=== PATIENT | male | born 1950 | race Caucasian/White ===

== ENCOUNTER 2019-09-07 20:24 | Inpatient (IN) ==
--- NOTE | 2019-09-07 20:39 | Emergency Department Note ---
SOB HPI - General Chief Complaint: Shortness of Breath/Dyspnea Stated Complaint: shortness of breathe Time Seen by Provider: 09/07/19 20:39 Mode of arrival: EMS - History of Present Illness 69-year-old male presents with shortness of breath. States he has COPD and is chronically short of breath but it is worse than usual especially the last couple of days but cannot really tell me how long this is been going on for. He did do treatment to nebulizer treatments at home and had one in route. States he feels still feels very short of breath. He is agitated and states we are not going to get labs on him or do anything until we give him some IV prednisone. No fever or chills. No nausea, vomiting, or diarrhea. Does have a chronic cough and no change in that cough. - Related Data Home Medications Medication Instructions Recorded Confirmed Tiotropium [place] [Spiriva] 18 mcg INH DAILY 10/24/15 05/26/19 albuterol sulfate 90 mcg/actuation 2 puff INHALATION QID PRN g 08/15/17 05/26/19 aerosol inhaler atorvastatin 20 mg tablet 20 mg PO QDAY 08/15/17 05/26/19 blood sugar diagnostic See Dose Instructions .ROUTE 08/15/17 05/26/19 .MEDSUPPLY #20 each budesonide-formoterol HFA 160 2 puff INHALATION BID g 08/15/17 05/26/19 mcg-4.5 mcg/actuation aerosol inhaler cetirizine 10 mg tablet 10 mg PO QDAY tab 08/15/17 05/26/19 guaifenesin 600 mg tablet, 600 mg PO BID tab 08/15/17 05/26/19 extended release 12 hr lancets See Dose Instructions .ROUTE 08/15/17 05/26/19 .MEDSUPPLY #50 each tiotropium bromide 2.5 2 puff INHALATION QDAY 08/15/17 05/26/19 mcg/actuation mist for inhalation furosemide 20 mg tablet 20 mg PO QDAY 09/06/17 05/26/19 ipratropium-albuterol 0.5 mg-3 3 ml INHALATION QID PRN ml 09/06/17 05/26/19 mg(2.5 mg base)/3 mL nebulization soln metformin 500 mg tablet 500 mg PO BID 10/16/17 05/26/19 montelukast 10 mg tablet 10 mg PO QHS 10/16/17 05/26/19 prednisone 10 mg tablet 10 mg PO QDAY tab 10/14/18 05/26/19 varenicline 1 mg tablet 1 mg PO QDAY tab 05/26/19 05/26/19 Previous Rx's Medication Instructions Recorded Daliresp 500 mcg tablet 500 mcg PO QDAY #30 tab NS 05/02/18 Allergies Allergy/AdvReac Type Severity Reaction Status Date / Time levofloxacin [From Levaquin] Allergy Unknown Unknown Verified 09/08/19 06:46 Review of Systems All systems ED: reviewed and negative except as stated. Past Medical History - Past Medical History [facility] Narrative: Medical History (Last Reviewed 05/26/19 @ 15:32 by Junior Saul MD) Hypertension (Chronic) Prolonged posttraumatic stress disorder (Chronic) PTSD (post-traumatic stress disorder) (Chronic) Marijuana abuse, continuous (Chronic) Alcohol abuse, continuous (Chronic) Hearing loss (Chronic) GERD (gastroesophageal reflux disease) (Chronic) Chronic rhinitis (Chronic) Overweight (Chronic) Hyperlipidemia (Chronic) Postherpetic neuralgia (Chronic) Acute bronchitis (Chronic) Gastritis (Chronic) Bronchitis (Chronic) Sinus tachycardia (Chronic) Nicotine dependence (Chronic) Basal cell carcinoma of cheek (Chronic) Diabetes mellitus (Chronic) Bacterial pneumonia (Chronic) Tachycardia (Chronic) COPD (chronic obstructive pulmonary disease) (Chronic) COPD exacerbation (Chronic) Past Surgical History (Last Reviewed 05/26/19 @ 15:32 by Junior Saul MD) History of colonoscopy (Chronic) Medical history: Reports: COPD, DM, hypertension Psychiatric history: Reports: PTSD Surgical history ED: Reports: other - Social History smoking status: Current some day smoker Alcohol use: Reports: Occasionally Drug use: Reports: none Physical Exam General appearance: alert, anxious, other (Speaking in 1-2 words at a time on arrival with mild respiratory distress) Head: atraumatic, normocephalic, normal inspection Eye: Present: normal appearance. Absent: conjunctival injection ENT: Present: mucous membranes moist Chest: Present: symmetric chest wall rise Respiratory: Present: wheezes (Inspiratory and expiratory wheezing throughout on arrival with diminished breath sounds. After Solu-Medrol and DuoNeb treatment he does have increased air movement but is still has expiratory wheezes in the bases) Cardiovascular: Present: tachycardia Extremities: Present: normal inspection. Absent: pedal edema Neurological: Present: alert, oriented X3 Psychiatric: Present: normal affect, normal mood Skin: Present: warm, dry, intact, normal color. Absent: rash, hives, cyanosis, diaphoresis Course Course Narrative: At [address] Roque to assume care due to shift change Vital Signs Temperature 97.3 F 09/07/19 20:25 Pulse Rate 112 H 09/07/19 20:25 Respiratory Rate 24 H 09/07/19 20:25 Blood Pressure 129/69 09/07/19 20:25 Pulse Oximetry (%) 98 09/07/19 20:25 Temperature 97.8 F 09/08/19 04:36 Pulse Rate 94 H 09/08/19 07:41 Respiratory Rate 16 09/08/19 07:41 Blood Pressure 129/65 09/08/19 04:36 Pulse Oximetry (%) 96 09/08/19 07:28 Shortness of Breath/Dyspnea - Lab Data Result diagrams: 09/08/19 05:03 09/08/19 05:03 Lab Results 09/07/19 09/07/19 09/07/19 Range/Units 20:48 20:48 20:48 WBC 12.6 H (4.50-11.00) K/mcL RBC 4.71 (4.63-6.08) M/mcL Hgb 14.5 (13.7-17.5) g/dL Hct 44.2 (40.1-51.0) % MCV 93.8 (80.0-100.0) fL MCH 30.8 (26.0-34.0) pg MCHC 32.8 (31.0-36.0) g/dL RDW 13.2 (11.5-14.5) % Plt Count 249 (140-440) K/mcL MPV 10.2 (7.4-10.4) fL Gran % 60.7 (38.0-78.0) % Lymph % (Auto) 22.3 (15.5-49.0) % [place] % (Auto) 9.8 (1.0-12.0) % Eos % (Auto) 6.4 (0.0-7.0) % Baso % (Auto) 0.8 (0.0-2.0) % Gran # 7.63 (1.80-8.00) K/mcL Lymph # (Auto) 2.81 (1.50-4.80) K/mcL [place] # (Auto) 1.23 H (0.10-0.90) K/mcL Eos # (Auto) 0.81 H (0.00-0.70) K/mcL Baso # (Auto) 0.10 (0.00-0.30) K/mcL Sodium 136 (133-145) mmol/L Potassium 3.7 (3.3-5.1) mmol/L Chloride 96 (96-108) mmol/L Carbon Dioxide 25 (22-30) mmol/L Anion Gap 15.0 (8-16) BUN 8 (8-23) mg/dl Creatinine 0.9 (0.7-1.2) mg/dl GFR Calculation 86 Glucose 147 H (70-105) mg/dL Calcium 9.4 (8.6-10.4) mg/dl Total Bilirubin 0.3 (0.0-1.0) mg/dL AST 24 (0-37) U/l ALT 27 (0-40) U/l Alkaline Phosphatase 74 (39-117) U/L Total Protein 6.7 (5.9-8.4) gm/dL Albumin 4.0 (3.2-5.2) gm/dL Globulin 2.7 (2.2-3.7) gm/dL Albumin/Globulin Ratio 1.5 (1.0-2.3) Procalcitonin < 0.05 (<0.10) ng/mL Disposition Pt seen by DISTRIBUTION SYSTEM OPERATOR/PA only: No Clinical Impression: COPD with acute exacerbation, Failure of outpatient treatment Disposition: Xfer As Inpt ([facility]) Condition: Fair
[2019-09-07] MEDS ORDERED: IPRATROPIUM/ALBUTEROL 3 ML AMPUL.NEB NEB ONE ×2 (20:40→21:06)
[2019-09-07] MEDS ORDERED: methylPREDNISolone SOD SUCC 125 MG/2 ML VIAL IV ONE (20:40)
[2019-09-07 21:23] LABS: Basophils % (Auto) 0.8 % (0.0-2.0); Eosinophils # (Auto) 0.81 K/mcL (0.00-0.70); Eosinophils % (Auto) 6.4 % (0.0-7.0); Granulocytes % (Auto) 60.7 % (38.0-78.0); Hematocrit 44.2 % (40.1-51.0); Hemoglobin 14.5 g/dL (13.7-17.5); Lymphocytes # (Auto) 2.81 K/mcL (1.50-4.80); Lymphocytes % (Auto) 22.3 % (15.5-49.0); Mean Cell Volume 93.8 fL (80.0-100.0); Mean Corpuscular HGB Conc 32.8 g/dL (31.0-36.0); Mean Platelet Volume 10.2 fL (7.4-10.4); Monocytes # (Auto) 1.23 K/mcL (0.10-0.90); Monocytes % (Auto) 9.8 % (1.0-12.0); Platelet Count 249 K/mcL (140-440); RBC 4.71 M/mcL (4.63-6.08); Red Cell Distribution Width 13.2 % (11.5-14.5); WBC 12.6 K/mcL (4.50-11.00)
[2019-09-07 21:44] LABS: ALT/SGPT 27 U/l (0-40); AST/SGOT 24 U/l (0-37); Albumin/Globulin Ratio 1.5 (1.0-2.3); Alkaline Phosphatase 74 U/L (39-117); Bilirubin,Total 0.3 mg/dL (0.0-1.0); Blood Urea Nitrogen 8 mg/dl (8-23); Calcium 9.4 mg/dl (8.6-10.4); Carbon Dioxide 25 mmol/L (22-30); Chloride 96 mmol/L (96-108); Globulin 2.7 gm/dL (2.2-3.7); Glomerular Filtration Rate 86; Glucose 147 mg/dL (70-105)
--- NOTE | 2019-09-07 23:35 | Emergency Department Note ---
SOB HPI - General Chief Complaint: Shortness of Breath/Dyspnea Stated Complaint: shortness of breathe Time Seen by Provider: 09/07/19 20:39 Mode of arrival: EMS - History of Present Illness See history and physical dictated by a Virginia Anthony PA-C, which I have reviewed and agreed. Patient still being short of breath at 11:00 at night. He reports that even some of the day yesterday he was able to go without his oxygen without becoming short of breath. Now, today this evening he became short of breath with even minimal walking. He has in the recent past been trying to ride his bike and do weight exercises which usually help him become stronger but they have not been able to be done due to his shortness of breath. He denies fever, chills, sweats, sore throat, runny nose new cough, new wheezing. No new major phlegm or change but he just now had some very thick phlegm which was unusual for him. He is more short of breath than usual such that he thinks he has pneumonia. He has received Solu-Medrol but it has not "turn things around". He has had a total of 4 nebulizers 1 at home, 1 by EMS, and 2 here. - Related Data Home Medications Medication Instructions Recorded Confirmed Tiotropium [place] [Spiriva] 18 mcg INH DAILY 10/24/15 05/26/19 albuterol sulfate 90 mcg/actuation 2 puff INHALATION QID PRN g 08/15/17 05/26/19 aerosol inhaler atorvastatin 20 mg tablet 20 mg PO QDAY 08/15/17 05/26/19 blood sugar diagnostic See Dose Instructions .ROUTE 08/15/17 05/26/19 .MEDSUPPLY #20 each budesonide-formoterol HFA 160 2 puff INHALATION BID g 08/15/17 05/26/19 mcg-4.5 mcg/actuation aerosol inhaler cetirizine 10 mg tablet 10 mg PO QDAY tab 08/15/17 05/26/19 guaifenesin 600 mg tablet, 600 mg PO BID tab 08/15/17 05/26/19 extended release 12 hr lancets See Dose Instructions .ROUTE 08/15/17 05/26/19 .MEDSUPPLY #50 each tiotropium bromide 2.5 2 puff INHALATION QDAY 08/15/17 05/26/19 mcg/actuation mist for inhalation furosemide 20 mg tablet 20 mg PO QDAY 09/06/17 05/26/19 ipratropium-albuterol 0.5 mg-3 3 ml INHALATION QID PRN ml 09/06/17 05/26/19 mg(2.5 mg base)/3 mL nebulization soln metformin 500 mg tablet 500 mg PO BID 10/16/17 05/26/19 montelukast 10 mg tablet 10 mg PO QHS 10/16/17 05/26/19 prednisone 10 mg tablet 10 mg PO QDAY tab 10/14/18 05/26/19 varenicline 1 mg tablet 1 mg PO QDAY tab 05/26/19 05/26/19 Previous Rx's Medication Instructions Recorded Daliresp 500 mcg tablet 500 mcg PO QDAY #30 tab NS 05/02/18 Allergies Allergy/AdvReac Type Severity Reaction Status Date / Time dog dander Allergy Intermediate "respiratory Verified 02/18/19 15:29 issues" levofloxacin [From Levaquin] AdvReac Unknown Unknown Verified 09/07/19 23:55 indoor allergies AdvReac Intermediate Other Uncoded 05/26/19 14:45 Past Medical History - Past Medical History Medical history: Reports: COPD, DM, hypertension Psychiatric history: Reports: PTSD Surgical history ED: Reports: other - Social History smoking status: Current some day smoker Alcohol use: Reports: Occasionally Drug use: Reports: none Physical Exam Is pleasant and interactive and appropriate. He seems to be well oriented capable. Lungs are very distant throughout all dotson. He demonstrate 6 or 7 word dyspnea, pursed lip breathing with prolonged expiratory phase on virtually every breath. He is on 2 L/min of oxygen via nasal cannula. He is doing some tripoding or leaning forward to be able to breathe. C-V: regular without murmur. General appearance: alert, anxious, other (Speaking in 1-2 words at a time on arrival with mild respiratory distress) Course Vital Signs Temperature 97.3 F 09/07/19 20:25 Pulse Rate 112 H 09/07/19 20:25 Respiratory Rate 24 H 09/07/19 20:25 Blood Pressure 129/69 09/07/19 20:25 Pulse Oximetry (%) 98 09/07/19 20:25 Temperature 97.3 F 09/07/19 20:25 Pulse Rate 97 H 09/07/19 23:46 Respiratory Rate 28 H 09/07/19 21:11 Blood Pressure 126/98 09/07/19 23:46 Pulse Oximetry (%) 97 09/07/19 23:46 Shortness of Breath/Dyspnea - [facility] Narrative Medical decision making narrative: Labs include a mildly elevated white count of 12,000. Procalcitonin is < 0.05. 11:34 PM - I discussed patient circumstances with house admin with agreement to go ahead and do ABG now. Patient agreeable. 11:50 PM - spoke with Dr. Nowak, hospitalist, who is willing to accept this pa tient due to failure of outpatient treatment and persistent respiratory effort and a COPD exacerbation/emphysema/hypoxia situation. Levaquin ordered. Heart neb also ordered. 11:51 PM - patient allergic to Levaquin. I will have Dr. Nowak apprised and see if he prefers to go ahead with other antibiotic. - Lab Data Lab results reviewed: Yes I reviewed the patient's lab results. Result diagrams: 09/07/19 20:48 09/07/19 20:48 Lab Results 09/07/19 09/07/19 09/07/19 Range/Units 20:48 20:48 20:48 WBC 12.6 H (4.50-11.00) K/mcL RBC 4.71 (4.63-6.08) M/mcL Hgb 14.5 (13.7-17.5) g/dL Hct 44.2 (40.1-51.0) % MCV 93.8 (80.0-100.0) fL MCH 30.8 (26.0-34.0) pg MCHC 32.8 (31.0-36.0) g/dL RDW 13.2 (11.5-14.5) % Plt Count 249 (140-440) K/mcL MPV 10.2 (7.4-10.4) fL Gran % 60.7 (38.0-78.0) % Lymph % (Auto) 22.3 (15.5-49.0) % [place] % (Auto) 9.8 (1.0-12.0) % Eos % (Auto) 6.4 (0.0-7.0) % Baso % (Auto) 0.8 (0.0-2.0) % Gran # 7.63 (1.80-8.00) K/mcL Lymph # (Auto) 2.81 (1.50-4.80) K/mcL [place] # (Auto) 1.23 H (0.10-0.90) K/mcL Eos # (Auto) 0.81 H (0.00-0.70) K/mcL Baso # (Auto) 0.10 (0.00-0.30) K/mcL Sodium 136 (133-145) mmol/L Potassium 3.7 (3.3-5.1) mmol/L Chloride 96 (96-108) mmol/L Carbon Dioxide 25 (22-30) mmol/L Anion Gap 15.0 (8-16) BUN 8 (8-23) mg/dl Creatinine 0.9 (0.7-1.2) mg/dl GFR Calculation 86 Glucose 147 H (70-105) mg/dL Calcium 9.4 (8.6-10.4) mg/dl Total Bilirubin 0.3 (0.0-1.0) mg/dL AST 24 (0-37) U/l ALT 27 (0-40) U/l Alkaline Phosphatase 74 (39-117) U/L Total Protein 6.7 (5.9-8.4) gm/dL Albumin 4.0 (3.2-5.2) gm/dL Globulin 2.7 (2.2-3.7) gm/dL Albumin/Globulin Ratio 1.5 (1.0-2.3) Procalcitonin < 0.05 (<0.10) ng/mL Disposition Pt seen by MECHANICAL TEST ENGINEER/PA only: No Clinical Impression: COPD with acute exacerbation, Failure of outpatient treatment Disposition: Xfer As Inpt ([facility]) Condition: Fair Referrals: Zulay Jnoes ARNP [Primary Care Provider] -
[2019-09-07] MEDS ORDERED: ALBUTEROL SULFATE 5 MG/ML NEB SOLUTION BOTTLE NEB ONE (23:53)
--- NOTE | 2019-09-07 23:54 | Internal Med History&Physical ---
Medical - H&P: [facility] Patient information: Note initiated : 09/07/19 at 11:51 pm Service Date, if different from initiated Date: [] Patient: Chico Milner a 69 y/o M admitted on for Shortness of breath. Chief Complaint: [] Chief complaint: Shortness of breath History of present illness: Mr. Milner is a 69 year old M with a known history of oxygen dependent COPD who presents to the ER with worsening shortness of breath over the last few days. Patient has been actively smoking but says he stopped a few weeks ago. He has had 3 episodes of pneumonia in the last year treated at [place]. He lives alone and denies any exposure to sick contacts. His symptoms have progressed with increasing dyspnea/yellow productive sputum. He denies chest pain or pleurisy. He further denies shaking chills/drenching sweats but endorses to severe weakness/loss of appetite and malaise. With worsening symptoms he presents to the ER Initial work-up was unremarkable except for persistent expiratory wheeze/shortness of breath requiring bronchodilators. Patient over the course of the ER visit failed to improve despite IV steroids/bronchodilators. Subsequently hospitalist service was consulted for admission. At the time of evaluation patient is alert and oriented. He was able to provide most of the history and answer to questions. He is up-to-date on flu and pneumonia vaccine, denies aspiration episodes of excessive alcoholism. He is currently on 2 L oxygen and fairly independent at baseline. Review of systems A 10 point review system was performed and is negative except for ones cussed above Medical - H&P: PMH Medical history: Hypertension (Chronic) Prolonged posttraumatic stress disorder (Chronic) PTSD (post-traumatic stress disorder) (Chronic) Marijuana abuse, continuous (Chronic) Alcohol abuse, continuous (Chronic) Hearing loss (Chronic) GERD (gastroesophageal reflux disease) (Chronic) Chronic rhinitis (Chronic) Overweight (Chronic) Hyperlipidemia (Chronic) Postherpetic neuralgia (Chronic) Acute bronchitis (Chronic) Gastritis (Chronic) Bronchitis (Chronic) Sinus tachycardia (Chronic) Nicotine dependence (Chronic) Basal cell carcinoma of cheek (Chronic) Diabetes mellitus (Chronic) Bacterial pneumonia (Chronic) Tachycardia (Chronic) COPD (chronic obstructive pulmonary disease) (Chronic) COPD exacerbation (Chronic) Surgical History History of colonoscopy (Chronic) Family History Mother Alzheimer disease Father Social History (Updated 05/26/19 @ 15:39 by Junior Saul MD) smoking status: Current some day smoker tobacco type: cigarettes alcohol intake frequency: holiday/special occasion only substance use type: marijuana Medical - H&P: Meds Home Medications Medication Instructions Recorded Confirmed Type Tiotropium [place] [Spiriva] 18 mcg INH DAILY 10/24/15 05/26/19 History albuterol sulfate 90 mcg/actuation 2 puff INHALATION QID PRN g 08/15/17 05/26/19 History aerosol inhaler atorvastatin 20 mg tablet 20 mg PO QDAY 08/15/17 05/26/19 History blood sugar diagnostic See Dose Instructions .ROUTE 08/15/17 05/26/19 History .MEDSUPPLY #20 each budesonide-formoterol HFA 160 2 puff INHALATION BID g 08/15/17 05/26/19 History mcg-4.5 mcg/actuation aerosol inhaler cetirizine 10 mg tablet 10 mg PO QDAY tab 08/15/17 05/26/19 History guaifenesin 600 mg tablet, 600 mg PO BID tab 08/15/17 05/26/19 History extended release 12 hr lancets See Dose Instructions .ROUTE 08/15/17 05/26/19 History .MEDSUPPLY #50 each tiotropium bromide 2.5 2 puff INHALATION QDAY 08/15/17 05/26/19 History mcg/actuation mist for inhalation furosemide 20 mg tablet 20 mg PO QDAY 09/06/17 05/26/19 History ipratropium-albuterol 0.5 mg-3 3 ml INHALATION QID PRN ml 09/06/17 05/26/19 History mg(2.5 mg base)/3 mL nebulization soln metformin 500 mg tablet 500 mg PO BID 10/16/17 05/26/19 History montelukast 10 mg tablet 10 mg PO QHS 10/16/17 05/26/19 History Daliresp 500 mcg tablet 500 mcg PO QDAY #30 tab NS 05/02/18 05/26/19 Rx prednisone 10 mg tablet 10 mg PO QDAY tab 10/14/18 05/26/19 History varenicline 1 mg tablet 1 mg PO QDAY tab 05/26/19 05/26/19 History Allergies Allergy/AdvReac Type Severity Reaction Status Date / Time levofloxacin [From Levaquin] Allergy Unknown Unknown Verified 09/08/19 06:46 Medical - H&P: Exam - Constitutional Vitals: Temp Pulse Resp BP Pulse Ox 97.3 F 96 H 28 H 135/66 97 09/07/19 20:25 09/07/19 23:16 09/07/19 21:11 09/07/19 23:16 09/07/19 23:16 General appearance: no acute distress Exam: Alert and oriented Head normocephalic Oral cavity dry No ear nose discharge Neck no lymphadenopathy Eye movement symmetrical S1-S2 regular rhythm Diminished breath sounds bases with late expiratory rhonchi Abdomen soft nontender Lower extremity no cyanosis clubbing no joint swelling Skin no suspicious lesion psych alert cooperative Neuro nonfocal Medical - H&P: Reslt - Labs CBC & Chem 7: 09/08/19 05:03 09/08/19 05:03 Labs: Short CBC 09/07/19 Range/Units 20:48 WBC 12.6 H (4.50-11.00) K/mcL Hgb 14.5 (13.7-17.5) g/dL Hct 44.2 (40.1-51.0) % Plt Count 249 (140-440) K/mcL BMP 09/07/19 20:48 Sodium 136 Potassium 3.7 Chloride 96 Carbon Dioxide 25 BUN 8 Creatinine 0.9 Glucose 147 H Calcium 9.4 Liver Function 09/07/19 Range/Units 20:48 Total Bilirubin 0.3 (0.0-1.0) mg/dL AST 24 (0-37) U/l ALT 27 (0-40) U/l Alkaline Phosphatase 74 (39-117) U/L Albumin 4.0 (3.2-5.2) gm/dL Medical - H&P: A/P (1) Acute exacerbation of chronic obstructive airways disease Current visit: No Status: Chronic * Acute exacerbation of COPD-continue supplemental oxygen/bronchodilators/pulmonary toilet and IV steroids. Antibiotic coverage * Acute bronchitis continue antibiotic coverage/pulmonary toilet * Dyspnea secondary to above. * DM type II continue sliding-scale insulin/CC diet/metformin * Tobacco dependence-nicotine patch * Hyperlipidemia continue statin * Full code Plan * Inpatient admission, anticipate minimum 2 midnight hospitalization * COPD management per guidelines * Pre-existing medical condition management as above * PT OT/nutrition support * Discharge planning
[2019-09-08] MEDS ORDERED: cefTRIAXone 1 GM VIAL IV ONE (00:08)
[2019-09-08] MEDS ORDERED: POLYETHYLENE GLYCOL 3350 17 GM PACKET PO PRN (01:54)
[2019-09-08] MEDS ORDERED: LEVOFLOXACIN 750 MG/150 ML BAG IV SCH (01:54)
[2019-09-08] MEDS ORDERED: ACETAMINOPHEN 650 MG/65 ML BOTTLE IV PRN (01:54)
[2019-09-08] MEDS ORDERED: ACETAMINOPHEN 325 MG TABLET PO PRN (01:54)
[2019-09-08] MEDS ORDERED: ONDANSETRON 4 MG/2 ML VIAL IV PRN (01:54)
[2019-09-08] MEDS ORDERED: ONDANSETRON 4 MG ODT TABLET SL PRN (01:54)
[2019-09-08] MEDS ORDERED: guaiFENesin/CODEINE 10 ML UDC PO PRN (01:54)
[2019-09-08] MEDS ORDERED: MELATONIN 3 MG TABLET PO PRN (01:54)
[2019-09-08] MEDS ORDERED: MAGNESIUM SULFATE 2 GM/50 ML BAG IV PRN (01:54)
[2019-09-08] MEDS ORDERED: POTASSIUM CHLORIDE 20 MEQ PACKET PO PRN (01:54)
--- NOTE | 2019-09-08 02:20 | XRay Report ---
CLINICAL INFORMATION: Shortness of breath COMPARISON: 07/20/[address] plain film [address] chest CT 05/07/2018 FINDINGS: Cardiomediastinal silhouette and pulmonary vessels are unremarkable. Severe COPD changes are stable. No infiltrate or effusions. IMPRESSION: Severe COPD. No acute disease Interpreted and Authenticated by: Norbert Cronin 09/08/19
[2019-09-08] MEDS: LEVOFLOXACIN 750 MG/150 ML BAG IV ONE ×2 (02:36→02:51)
[2019-09-08] MEDS: IPRATROPIUM/ALBUTEROL 3 ML AMPUL.NEB NEB SCH ×6 (02:54→22:42)
[2019-09-08] MEDS: AMOXICILLIN/POTASSIUM CLAV 875 MG TABLET PO SCH ×3 (04:47→17:09)
[2019-09-08] MEDS: 0.9 % SODIUM CHLORIDE 10 ML SYRINGE IV SCH ×3 (06:10→20:51)
[2019-09-08 07:14] LABS: Hematocrit 45.3 % (40.1-51.0); Hemoglobin 14.6 g/dL (13.7-17.5); Mean Cell Volume 94.8 fL (80.0-100.0); Mean Corpuscular HGB Conc 32.2 g/dL (31.0-36.0); Mean Platelet Volume 10.5 fL (7.4-10.4); Platelet Count 262 K/mcL (140-440); RBC 4.78 M/mcL (4.63-6.08); Red Cell Distribution Width 13.1 % (11.5-14.5); WBC 8.9 K/mcL (4.50-11.00)
[2019-09-08] MEDS: BUDESONIDE 0.5 MG/2 ML AMPUL.NEB NEB SCH ×2 (07:28→18:35)
[2019-09-08 07:55] LABS: ALT/SGPT 28 U/l (0-40); AST/SGOT 21 U/l (0-37); Albumin 4.2 gm/dL (3.2-5.2); Albumin/Globulin Ratio 1.7 (1.0-2.3); Alkaline Phosphatase 76 U/L (39-117); Bilirubin,Direct < 0.2 mg/dL (0.0-0.3); Bilirubin,Total 0.2 mg/dL (0.0-1.0); Blood Urea Nitrogen 11 mg/dl (8-23); Calcium 9.4 mg/dl (8.6-10.4); Carbon Dioxide 23 mmol/L (22-30); Chloride 98 mmol/L (96-108); Globulin 2.5 gm/dL (2.2-3.7); Glomerular Filtration Rate 86; Glucose 199 mg/dL (70-105); Lactate Dehydrogenase 197 U/L (94-250); Phosphorous 3.3 mg/dL (2.7-4.5); Triglycerides 66 mg/dl (<150); Uric Acid 6.3 mg/dL (2.5-8.0)
[2019-09-08] MEDS: HEPARIN 5,000 UNIT/ML VIAL SQ SCH ×2 (08:13→20:52)
[2019-09-08] MEDS: methylPREDNISolone SOD SUCC 125 MG/2 ML VIAL IV SCH ×2 (08:13→20:48)
[2019-09-08] MEDS: DOCUSATE SODIUM 100 MG CAPSULE PO SCH ×2 (08:14→20:54)
[2019-09-08] MEDS: MULTIVIT,THER IRON,CA,FA & MIN 1 TABLET PO SCH (08:14)
--- NOTE | 2019-09-08 08:27 | Internal Med Progress Note ---
Medical - PN: Subj Patient information: Note initiated : 09/08/19 at 8:25 am Service Date, if different from initiated Date: [] Patient: Chico Milner a 69 y/o M admitted on 09/08/19 for Shortness of breath. Chief Complaint: [] Interval history: Mr. Milner is a 69 year old M with a known history of oxygen dependent COPD who presents to the ER with worsening shortness of breath over the last few days. Patient has been actively smoking but says he stopped a few weeks ago. He has had 3 episodes of pneumonia in the last year treated at [place]. He lives alone and denies any exposure to sick contacts. His symptoms have progressed with increasing dyspnea/yellow productive sputum. He denies chest pain or pleurisy. He further denies shaking chills/drenching sweats but endorses to severe weakness/loss of appetite and malaise. With worsening symptoms he presents to the ER Initial work-up was unremarkable except for persistent expiratory wheeze/shortness of breath requiring bronchodilators. Patient over the course of the ER visit failed to improve despite IV steroids/bronchodilators. Subsequently hospitalist service was consulted for admission. At the time of evaluation patient is alert and oriented. He was able to provide most of the history and answer to questions. He is up-to-date on flu and pneumonia vaccine, denies aspiration episodes of excessive alcoholism. He is currently on 2 L oxygen and fairly independent at baseline. 09/08-patient doing well. No overnight events. No other concerns per staff. Much improved breathing however persistent rhonchi. On IV steroids/bronchodi lators. Able to hold conversation in full sentences. No concerns expressed to nursing staff - Constitutional Vitals: Vital Signs Temp Pulse Resp BP Pulse Ox 97.8 F 94 H 16 129/65 96 09/08/19 04:36 09/08/19 07:41 09/08/19 07:41 09/08/19 04:36 09/08/19 07:28 Period Temp Pulse Resp BP Sys/Kunz Pulse Ox Last 24 Hr 97.3 F-97.8 F 75-112 16-32 103-158/65-103 96-98 Intake and Output 09/07/19 09/08/19 09/08/19 21:59 05:59 13:59 Intake Total 50 Balance 50 Weight 165 lb 161 lb Intake & Output: Intake & Output 09/07/19 09/08/19 09/08/19 21:59 05:59 13:59 Intake Total 50 Balance 50 Weight 165 lb 161 lb Intake: Oral 50 General appearance: no acute distress Exam: Persistent rhonchi Minimally labored breathing No anxiety No lymphedema Medical - PN: Obj Da - Labs CBC & Chem 7: 09/08/19 05:03 09/08/19 05:03 Labs: Abnormal Lab Results 09/08/19 09/08/19 09/07/19 05:03 05:03 20:48 WBC MPV 10.5 H [place] # (Auto) Eos # (Auto) Glucose 199 H 147 H 09/07/19 20:48 WBC 12.6 H MPV [place] # (Auto) 1.23 H Eos # (Auto) 0.81 H Glucose Meds: Medications Acetaminophen (Tylenol) 650 mg PO Q4-6HP PRN; Protocol PRN Reason: Per Pain Protocol/Fever > 101 Albuterol/Ipratropium (Duoneb) 3 ml NEB Q4HRT [facility] Last Admin: 09/08/19 07:27 Dose: 3 ml Documented by: Amoxicillin/Clavulanate [facility]; Protocol Last Admin: 09/08/19 08:14 Dose: 875 mg Documented by: Budesonide (Pulmicort) 0.5 mg NEB Q12 [facility] Last Admin: 09/08/19 07:28 Dose: 0.5 mg Documented by: Docusate Sodium (Colace) 100 mg PO BID [facility] Last Admin: 09/08/19 08:14 Dose: 100 mg Documented by: Guaifenesin/Codeine Phosphate (Robitussin Ac) 10 ml PO Q4HP PRN PRN Reason: Cough Last Admin: 09/08/19 08:14 Dose: 10 ml Documented by: Heparin Sodium (Porcine) (Heparin) 5,000 unit SQ Q12 [facility] Last Admin: 09/08/19 08:13 Dose: 5,000 unit Documented by: Acetaminophen (Ofirmev) 650 mg in 65 mls @ 130 mls/hr IV Q6HP PRN; Protocol PRN Reason: Per Pain Protocol/Fever > 101 Magnesium Sulfate (Magnesium Sulfate) 2 gm in 50 mls @ 50 mls/hr IV UD PRN PRN Reason: MG = or < 1.7 Iron Carb/Multivit/[place]/Folic Acid (Multivitamin W/Minerals) 1 tab PO DAILY [facility] Last Admin: 09/08/19 08:14 Dose: 1 tab Documented by: Melatonin (Melatonin 3mg Tablet) 3 mg PO HSP PRN PRN Reason: Insomnia Methylprednisolone Sodium Succinate (Solu-Medrol) 60 mg IV Q12 [facility] Last Admin: 09/08/19 08:13 Dose: 60 mg Documented by: Ondansetron HCl (Zofran Odt) 4 mg SL Q4-6HP PRN; Protocol PRN Reason: Nausea And Vomiting Ondansetron HCl (Zofran) 4 mg IV Q4-6HP PRN; Protocol PRN Reason: Nausea And Vomiting Polyethylene Glycol (Miralax) 17 gm PO DAILYP PRN PRN Reason: Constipation Potassium Chloride (Klor-Con) 40 meq PO DAILYP PRN PRN Reason: K+ < 3.5 Senna/Docusate Sodium (Senna Plus Tablet) 1 tab PO [facility] Sodium Chloride (Saline Flush) 10 ml IV Q8 [facility] Last Admin: 09/08/19 06:10 Dose: 10 ml Documented by: Medical - PN: A/P - Time Spent With Patient Total time spent is greater than 50% in coordination of care (as documented) at patient's floor/unit and/or counseling patient: (1) Acute exacerbation of chronic obstructive airways disease Status: Chronic Assessment and plan: * Acute exacerbation of COPD-clinically improving with aggressive management with steroids/bronchodilators and pulmonary toilet. Continue supplemental oxygen * Acute bronchitis clinically improving on antibiotic coverage/pulmonary toilet * Dyspnea secondary to above. Improving * DM type II continue sliding-continue scale insulin/CC diet/metformin * Tobacco dependence-nicotine patch * Hyperlipidemia continue statin * Full code Plan * Continue IV steroids/bronchodilators. * Transition to oral steroids in 24 hours * Continue pre-existing medical condition management as above * PT OT/nutrition support * Discharge planning per case management Current Visit: No
[2019-09-08 09:19] LABS: Band Neutrophils % 1 % (0-10); Lymphocytes % 2 % (15-49); Monocytes % (Manual) 1 % (1-12); Platelet Estimate NORMAL (NORMAL); RBC Morphology NORMAL (NORMAL); Reactive Lymphocytes 1 % (0-2); Segmented Neutrophils % 95 % (38-78)
[2019-09-08] MEDS ORDERED: VARENICLINE TARTRATE 1 MG TABLET PO PRN (16:24)
[2019-09-08] MEDS ORDERED: ALBUTEROL SULFATE 1 PUFF INHALER INH PRN (16:24)
[2019-09-08] MEDS: CETIRIZINE 10 MG TABLET PO SCH (17:09)
[2019-09-08] MEDS: GABAPENTIN 300 MG CAPSULE PO SCH ×2 (17:09→20:48)
[2019-09-08] MEDS: metFORMIN 500 MG TABLET PO SCH (17:10)
[2019-09-08] MEDS: MONTELUKAST 10 MG TABLET PO SCH (20:47)
[2019-09-08] MEDS: DULoxetine 30 MG CAPSULE PO SCH (20:48)
[2019-09-08] MEDS: SENNOSIDES/DOCUSATE SODIUM 1 TAB TABLET PO SCH (20:54)
[2019-09-08] MEDS: Budesonide/Formoterol Fumarate [Symbicort] 160-4.5 mcg Inhaler INH SCH (21:45)
[2019-09-09] MEDS: IPRATROPIUM/ALBUTEROL 3 ML AMPUL.NEB NEB SCH ×5 (03:45→19:04)
--- NOTE | 2019-09-09 06:57 | XRay Report ---
CLINICAL INFORMATION: COPD COMPARISON: 09/07/2019 FINDINGS: Heart size, mediastinum and pulmonary vessels are unremarkable. Severe COPD changes again noted. A 20 mm density overlies the lateral right ninth rib which was not seen on remote study. Minor lingular scarring noted - no infiltrates. IMPRESSION: 1. No acute disease. Severe COPD. 2. 20 mm sclerotic density overlying the lateral ninth rib. This was not seen on remote x-rays. It is more likely a bone island than a pulmonary nodule. Suggest right rib films. Interpreted and Authenticated by: Norbert Cronin 09/09/19
[2019-09-09] MEDS: 0.9 % SODIUM CHLORIDE 10 ML SYRINGE IV SCH ×3 (07:54→21:06)
[2019-09-09 08:04] LABS: Hemoglobin 13.8 g/dL (13.7-17.5); Mean Cell Volume 94.6 fL (80.0-100.0); Mean Corpuscular HGB Conc 32.9 g/dL (31.0-36.0); Mean Platelet Volume 10.7 fL (7.4-10.4); Platelet Count 229 K/mcL (140-440); RBC 4.44 M/mcL (4.63-6.08); Red Cell Distribution Width 13.2 % (11.5-14.5); WBC 19.2 K/mcL (4.50-11.00)
[2019-09-09] MEDS: AMOXICILLIN/POTASSIUM CLAV 875 MG TABLET PO SCH ×2 (08:06→17:49)
[2019-09-09] MEDS: metFORMIN 500 MG TABLET PO SCH ×2 (08:06→17:50)
--- NOTE | 2019-09-09 08:16 | Internal Med Progress Note ---
Medical - PN: Subj Patient information: Note initiated : 09/09/19 at 8:15 am Service Date, if different from initiated Date: [] Patient: Chico Milner a 69 y/o M admitted on 09/08/19 for Shortness of breath. Chief Complaint: [] Interval history: Mr. Milner is a 69 year old M with a known history of oxygen dependent COPD who presents to the ER with worsening shortness of breath over the last few days. Patient has been actively smoking but says he stopped a few weeks ago. He has had 3 episodes of pneumonia in the last year treated at [place]. He lives alone and denies any exposure to sick contacts. His symptoms have progressed with increasing dyspnea/yellow productive sputum. He denies chest pain or pleurisy. He further denies shaking chills/drenching sweats but endorses to severe weakness/loss of appetite and malaise. With worsening symptoms he presents to the ER Initial work-up was unremarkable except for persistent expiratory wheeze/shortness of breath requiring bronchodilators. Patient over the course of the ER visit failed to improve despite IV steroids/bronchodilators. Subsequently hospitalist service was consulted for admission. At the time of evaluation patient is alert and oriented. He was able to provide most of the history and answer to questions. He is up-to-date on flu and pneumonia vaccine, denies aspiration episodes of excessive alcoholism. He is currently on 2 L oxygen and fairly independent at baseline. 09/08-patient doing well. No overnight events. No other concerns per staff. Much improved breathing however persistent rhonchi. On IV steroids/bronchodi lators. Able to hold conversation in full sentences. No concerns expressed to nursing staff 09/09-patient doing well. No overnight events. Requesting gabapentin at night for neuropathic pain. Discussed treatment plan and possible discharge in 24 hours. Patient will follow-up outpatient with Dr. Saul pulmonology. Currently on 2 L oxygen. Shortness of breath improving. Continue steroids /bronchodilators. - Constitutional Vitals: Vital Signs Temp Pulse Resp BP Pulse Ox 97.4 F 83 22 100/61 98 09/09/19 07:45 09/09/19 07:45 09/09/19 07:45 09/09/19 07:45 09/09/19 07:45 Period Temp Pulse Resp BP Sys/Kunz Pulse Ox Last 24 Hr 97.4 F-98.5 F 83-110 16-24 100-114/49-61 93-98 Intake and Output 09/08/19 09/09/19 09/09/19 21:59 05:59 13:59 Intake Total 480 120 Output Total 150 50 100 Balance 330 70 -100 Weight 166 lb 8 oz Intake & Output: Intake & Output 09/08/19 09/09/19 09/09/19 21:59 05:59 13:59 Intake Total 480 120 Output Total 150 50 100 Balance 330 70 -100 Weight 166 lb 8 oz Intake: Oral 480 120 Output: Void Amount 150 50 100 Other: Meal Dinner Percent of Meal Consumed 100% Feeding Ability Independent Urine Appearance Clear Urine Color Bright Yellow Urine Odor Normal General appearance: no acute distress Exam: Alert oriented Nonlabored breathing No anxiety No lymphedema Nondistended abdomen Medical - PN: Obj Da - Labs CBC & Chem 7: 09/09/19 06:15 09/08/19 05:03 Labs: Abnormal Lab Results 09/09/19 09/08/19 09/08/19 06:15 05:03 05:03 WBC 19.2 H RBC 4.44 L MPV 10.7 H 10.5 H [place] # (Auto) Eos # (Auto) Seg Neutrophils % 95 H Lymphocytes % 2 L Glucose 199 H 09/07/19 09/07/19 20:48 20:48 WBC 12.6 H RBC MPV [place] # (Auto) 1.23 H Eos # (Auto) 0.81 H Seg Neutrophils % Lymphocytes % Glucose 147 H Meds: Medications Acetaminophen (Tylenol) 650 mg PO Q4-6HP PRN; Protocol PRN Reason: Per Pain Protocol/Fever > 101 Albuterol Sulfate (Ventolin) 2 puff INH QIDP PRN PRN Reason: Shortness Of Breath Last Admin: 09/08/19 20:58 Dose: 2 puff Documented by: Albuterol/Ipratropium (Duoneb) 3 ml NEB Q4HRT [facility] Last Admin: 09/09/19 03:45 Dose: 3 ml Documented by: Amoxicillin/Clavulanate Potassium (Augmentin) 875 mg PO BIDCC [facility]; Protocol Last Admin: 09/09/19 08:06 Dose: 875 mg Documented by: Atorvastatin Calcium (Lipitor) 20 mg PO QDAY [facility] Budesonide (Pulmicort) 0.5 mg NEB Q12 [facility] Last Admin: 09/08/19 18:35 Dose: 0.5 mg Documented by: Cetirizine HCl (Zyrtec) 10 mg PO DAILY [facility] Last Admin: 09/08/19 17:09 Dose: 10 mg Documented by: Docusate Sodium (Colace) 100 mg PO BID [facility] Last Admin: 09/08/19 20:54 Dose: Not Given Documented by: Duloxetine HCl (Cymbalta) 30 mg PO HS [facility] Last Admin: 09/08/19 20:48 Dose: 30 mg Documented by: Gabapentin (Neurontin) 300 mg PO DAILY [facility] Gabapentin (Neurontin) 900 mg PO HS [facility] Guaifenesin/Codeine Phosphate (Robitussin Ac) 10 ml PO Q4HP PRN PRN Reason: Cough Last Admin: 09/08/19 08:14 Dose: 10 ml Documented by: Heparin Sodium (Porcine) (Heparin) 5,000 unit SQ Q12 [facility] Last Admin: 09/08/19 20:52 Dose: 5,000 unit Documented by: Acetaminophen (Ofirmev) 650 mg in 65 mls @ 130 mls/hr IV Q6HP PRN; Protocol PRN Reason: Per Pain Protocol/Fever > 101 Magnesium Sulfate (Magnesium Sulfate) 2 gm in 50 mls @ 50 mls/hr IV UD PRN PRN Reason: MG = or < 1.7 Iron Carb/Multivit/[place]/Folic Acid (Multivitamin W/Minerals) 1 tab PO DAILY [facility] Last Admin: 09/08/19 08:14 Dose: 1 tab Documented by: Melatonin (Melatonin 3mg Tablet) 3 mg PO HSP PRN PRN Reason: Insomnia Metformin HCl (Glucophage) 500 mg PO BIDCC [facility] Last Admin: 09/09/19 08:06 Dose: 500 mg Documented by: Methylprednisolone Sodium Succinate (Solu-Medrol) 60 mg IV Q12 [facility] Last Admin: 09/08/19 20:48 Dose: 60 mg Documented by: Montelukast Sodium (Singular) 10 mg PO QHS [facility] Last Admin: 09/08/19 20:47 Dose: 10 mg Documented by: Ondansetron HCl (Zofran Odt) 4 mg SL Q4-6HP PRN; Protocol PRN Reason: Nausea And Vomiting Budesonide/Formoterol Fumarate [Symbicort] 160-4.5 Mcg Inhaler 2 dose INH BID [facility] Last Admin: 09/08/19 21:45 Dose: Not Given Documented by: Roflumilast [ Daliresp] 500 Mcg Tab 1 dose PO QDAY [facility] Polyethylene Glycol (Miralax) 17 gm PO DAILYP PRN PRN Reason: Constipation Potassium Chloride (Klor-Con) 40 meq PO DAILYP PRN PRN Reason: K+ < 3.5 Senna/Docusate Sodium (Senna Plus Tablet) 1 tab PO HS [facility] Last Admin: 09/08/19 20:54 Dose: Not Given Documented by: Sodium Chloride (Saline Flush) 10 ml IV Q8 [facility] Last Admin: 09/09/19 07:54 Dose: Not Given Documented by: Varenicline (Chantix) 1 mg PO DAILYP PRN PRN Reason: withdrawl from nicotine Medical - PN: A/P - Time Spent With Patient Total time spent is greater than 50% in coordination of care (as documented) at patient's floor/unit and/or counseling patient: 25 - 35 minutes (1) Acute exacerbation of chronic obstructive airways disease Status: Chronic Assessment and plan: * Acute exacerbation of COPD-clinically improved with aggressive management with steroids/bronchodilators and pulmonary toilet. Switch to oral steroids * Acute bronchitis clinically improved on antibiotic coverage/pulmonary toilet * Dyspnea secondary to above. Clinically improved * DM type II continue sliding-continue scale insulin/CC diet/metformin * Tobacco dependence-nicotine patch * Hyperlipidemia continue statin * Full code Plan * Transition to oral steroids. * Continue antibiotic * Continue pre-existing medical condition management as above * PT OT/nutrition support * Likely discharge in 24 hours Current Visit: No
[2019-09-09 08:26] LABS: ALT/SGPT 27 U/l (0-40); AST/SGOT 15 U/l (0-37); Albumin 3.8 gm/dL (3.2-5.2); Albumin/Globulin Ratio 1.7 (1.0-2.3); Alkaline Phosphatase 62 U/L (39-117); Bilirubin,Direct < 0.2 mg/dL (0.0-0.3); Bilirubin,Total 0.2 mg/dL (0.0-1.0); Blood Urea Nitrogen 18 mg/dl (8-23); Calcium 9.5 mg/dl (8.6-10.4); Carbon Dioxide 27 mmol/L (22-30); Chloride 101 mmol/L (96-108); Globulin 2.3 gm/dL (2.2-3.7); Glomerular Filtration Rate 86; Glucose 184 mg/dL (70-105); Lactate Dehydrogenase 144 U/L (94-250); Phosphorous 2.7 mg/dL (2.7-4.5); Triglycerides 95 mg/dl (<150); Uric Acid 4.8 mg/dL (2.5-8.0)
[2019-09-09] MEDS ORDERED: GABAPENTIN 300 MG CAPSULE PO SCH ×2 (09:00→21:00)
[2019-09-09] MEDS ORDERED: CETIRIZINE 10 MG TABLET PO SCH ×2 (09:00)
[2019-09-09] MEDS ORDERED: ATORVASTATIN 20 MG TABLET PO SCH (09:00)
[2019-09-09 09:04] LABS: Lymphocytes % 3 % (15-49); Monocytes % (Manual) 8 % (1-12); Platelet Estimate NORMAL (NORMAL); RBC Morphology NORMAL (NORMAL); Segmented Neutrophils % 89 % (38-78)
[2019-09-09] MEDS: DOCUSATE SODIUM 100 MG CAPSULE PO SCH ×2 (09:14→21:08)
[2019-09-09] MEDS: MULTIVIT,THER IRON,CA,FA & MIN 1 TABLET PO SCH (09:14)
[2019-09-09] MEDS: CETIRIZINE 10 MG TABLET PO SCH (09:15)
[2019-09-09] MEDS: HEPARIN 5,000 UNIT/ML VIAL SQ SCH ×2 (09:15→21:08)
[2019-09-09] MEDS: predniSONE 20 MG TABLET PO SCH (09:21)
[2019-09-09] MEDS: Budesonide/Formoterol Fumarate [Symbicort] 160-4.5 mcg Inhaler INH SCH ×2 (09:23→21:08)
[2019-09-09] MEDS: BUDESONIDE 0.5 MG/2 ML AMPUL.NEB NEB SCH ×2 (12:11→19:03)
[2019-09-09] MEDS: MONTELUKAST 10 MG TABLET PO SCH (21:06)
[2019-09-09] MEDS: DULoxetine 30 MG CAPSULE PO SCH (21:06)
[2019-09-09] MEDS: SENNOSIDES/DOCUSATE SODIUM 1 TAB TABLET PO SCH (21:08)
[2019-09-10] MEDS: IPRATROPIUM/ALBUTEROL 3 ML AMPUL.NEB NEB SCH ×4 (03:48→10:45)
[2019-09-10] MEDS: metFORMIN 500 MG TABLET PO SCH (07:30)
[2019-09-10] MEDS: AMOXICILLIN/POTASSIUM CLAV 875 MG TABLET PO SCH (07:30)
[2019-09-10] MEDS: predniSONE 20 MG TABLET PO SCH (07:30)
[2019-09-10] MEDS: 0.9 % SODIUM CHLORIDE 10 ML SYRINGE IV SCH (07:36)
[2019-09-10] MEDS: BUDESONIDE 0.5 MG/2 ML AMPUL.NEB NEB SCH (07:43)
--- NOTE | 2019-09-10 07:57 | Discharge Summary ---
Medical - DS: Prov Patient information: Note initiated : 09/10/19 at 7:55 am Service Date, if different from initiated Date: [] Patient: Chico Milner 69 y/o M admitted on 09/08/19 for Shortness of breath. Chief Complaint: [] Date of admission: 09/08/19 01:49 Discharge date: 09/10/19 Primary care physician: Zulay Jones Consults: 09/07/19 Consult to Physician [CONS] Stat Comment: Consulting Provider: Vega Leo Reason For Exam: Physician to Consult Medical - DS: Meds - Discharge Medications Prescriptions: Amoxicillin/Potassium Clav [Augmentin] 875 mg PO BIDCC #10 tab Transmission Status: Pending to [facility] predniSONE [Prednisone] 40 mg PO [facility] #8 tab Transmission Status: Pending to [facility] Active and Home Medications: Home Medications Tiotropium [place] [Spiriva] 18 mcg INH DAILY 10/24/15 [History Confirmed 09/08/19 Last Taken 09/06/19] albuterol sulfate 90 mcg/actuation aerosol inhaler 2 puff INHALATION QID PRN g MDD 2 08/15/17 [History Confirmed 09/08/19 Last Taken 09/06/19] budesonide-formoterol HFA 160 mcg-4.5 mcg/actuation aerosol inhaler 2 puff INHALATION BID g 08/15/17 [History Confirmed 09/08/19 Last Taken 09/06/19] cetirizine 10 mg tablet 10 mg PO QDAY tab 08/15/17 [History Confirmed 09/08/19 Last Taken 09/06/19] tiotropium bromide 2.5 mcg/actuation mist for inhalation 2 puff INHALATION QDAY 08/15/17 [History Confirmed 09/08/19 Last Taken 09/06/19] ipratropium-albuterol 0.5 mg-3 mg(2.5 mg base)/3 mL nebulization soln 3 ml INHALATION QID PRN ml 09/06/17 [History Confirmed 09/08/19 Last Taken 09/06/19] metformin 500 mg tablet 1,000 mg PO BID 10/16/17 [History Confirmed 09/09/19 Last Taken 09/06/19] montelukast 10 mg tablet 10 mg PO QHS 10/16/17 [History Confirmed 09/08/19 Last Taken 09/06/19] Daliresp 500 mcg tablet 500 mcg PO QDAY #30 tab NS 05/02/18 [Rx Confirmed 09/08/19 Last Taken 09/06/19] prednisone 10 mg tablet 10 mg PO QDAY tab 10/14/18 [History Confirmed 09/08/19 Last Taken 09/06/19] varenicline 1 mg tablet 1 mg PO BID tab MDD 2mg 05/26/19 [History Confirmed 09/09/19 Last Taken Unknown] Alogliptin Benzoate [Alogliptin] 25 mg PO DAILY 09/09/19 [History Confirmed 09/09/19 Last Taken 09/06/19] Bisoprolol Fumarate 10 mg PO DAILY 09/09/19 [History Confirmed 09/09/19 Last Taken 09/06/19] Cholecalciferol (Vitamin D3) [Vitamin D3] 5,000 unit PO DAILY 09/09/19 [History Confirmed 09/09/19 Last Taken 09/06/19] Cyclobenzaprine HCl 5 - 10 mg PO BID PRN 09/09/19 [History Confirmed 09/09/19 Last Taken Unknown] DULoxetine HCL [Cymbalta] 20 mg PO BID 09/09/19 [History Confirmed 09/09/19 Last Taken 09/06/19] Rosuvastatin Calcium [Crestor] 5 mg PO HS 09/09/19 [History Confirmed 09/09/19 Last Taken 09/06/19] Saw [place]/Pyg/Zn/B6 [ [place] Complex Sftgel] 1 cap PO DAILY 09/09/19 [History Confirmed 09/09/19 Last Taken 09/06/19] guaiFENesin [Mucus Relief ER] 600 mg PO BID 09/09/19 [History Confirmed 09/09/19 Last Taken 09/06/19] Amoxicillin/Potassium Clav [Augmentin] 875 mg PO BIDCC #10 tab 09/10/19 [Rx Last Taken Unknown] predniSONE [Prednisone] 40 mg PO QAMCC #8 tab 09/10/19 [Rx Last Taken Unknown] Medical - DS: Hosp Hospital Course: Discharge diagnosis * Acute exacerbation of COPD-clinically resolved with aggressive management with steroids/bronchodilators and pulmonary toilet. Continue oral prednisone/Augmentin for additional 5 days * Acute bronchitis clinically resolved. Recommend refraining from smoking * Dyspnea secondary to above. Clinically improved * DM type II continue sliding-continue CCD/home medications * Neuropathy continue duloxetine/gabapentin * Tobacco dependence-nicotine patch. Counseled for smoking cessation * Hyperlipidemia continue statin Brief hospital course Mr. Milner is a 69 year old M with a known history of oxygen dependent COPD who presents to the ER with worsening shortness of breath over the last few days. Patient has been actively smoking but says he stopped a few weeks ago. He has had 3 episodes of pneumonia in the last year treated at [place]. He lives alone and denies any exposure to sick contacts. His symptoms have progressed with increasing dyspnea/yellow productive sputum. He denies chest pain or pleurisy. He further denies shaking chills/drenching sweats but endorses to severe weakness/loss of appetite and malaise. With worsening symptoms he presents to the ER Initial work-up was unremarkable except for persistent expiratory wheeze/shortness of breath requiring bronchodilators. Patient over the course of the ER visit failed to improve despite IV steroids/bronchodilators. Subsequently hospitalist service was consulted for admission. At the time of evaluation patient is alert and oriented. He was able to provide most of the history and answer to questions. He is up-to-date on flu and pneumonia vaccine, denies aspiration episodes of excessive alcoholism. He is currently on 2 L oxygen and fairly independent at baseline. 09/08-patient doing well. No overnight events. No other concerns per staff. Much improved breathing however persistent rhonchi. On IV steroids/bronchodilators. Able to hold conversation in full sentences. No concerns expressed to nursing staff 09/09-patient doing well. No overnight events. Requesting gabapentin at night for neuropathic pain. Discussed treatment plan and possible discharge in 24 hours. Patient will follow-up outpatient with Dr. Saul pulmonology. Currently on 2 L oxygen. Shortness of breath improving. Continue steroids/bron chodilators. 09/10-patient doing well. No overnight events. No concerns per staff. No fever chills nausea vomiting. Much improved breathing currently on 2 L oxygen. Able to ambulate. Discharging advised to continue additional 5 days antibiotics/4 days prednisone 40 and then resume 10 mg normal home dose. Discharge diagnosis: , - Time Spent with Patient Total time spent providing and/or coordinating discharge services: Greater than 30 minutes Medical - DS: Exam - Constitutional Vitals: Vital Signs Temp Pulse Pulse Resp BP Pulse Ox 09/10/19 07:44 96 H 16 96 09/10/19 07:39 73 09/10/19 03:45 97.6 F 73 20 127/65 98 09/10/19 00:00 87 16 09/09/19 23:46 97.6 F 108 H 24 H 130/71 94 09/09/19 19:05 96 H 16 98 09/09/19 18:42 98.3 F 93 H 24 H 139/77 98 09/09/19 15:02 95 H 16 96 09/09/19 12:12 90 16 09/09/19 11:00 97.9 F 83 18 124/64 100 09/09/19 08:34 89 16 Intake and Output 09/09/19 09/10/19 09/10/19 21:59 05:59 13:59 Intake Total 350 Output Total 325 176 Balance -325 174 Intake: Oral 350 Output: Void Amount 325 175 # of times incontinent of urine 1 Other: Meal Dinner Percent of Meal Consumed 100% Feeding Ability Independent Urine Appearance Clear Clear Urine Color Bright Yellow Bright Yellow Urine Odor Normal Weight 167 lb Medical - DS: Data Labs on day of discharge: Labs from last 24 hours 09/10/19 09/10/19 09/09/19 06:30 06:30 06:15 WBC Pending RBC Pending Hgb Pending Hct Pending MCV Pending MCH Pending MCHC Pending RDW Pending Plt Count Pending MPV Pending Total Counted Pending Seg Neutrophils % Band Neutrophils % Not Reportable Lymphocytes % Monocytes % (Manual) Platelet Estimate Pending RBC Morphology Pending Sodium Pending 141 Potassium Pending 4.4 Chloride Pending 101 Carbon Dioxide Pending 27 Anion Gap Pending 13.0 BUN Pending 18 Creatinine Pending 0.9 GFR Calculation Pending 86 Glucose Pending 184 H Uric Acid Pending 4.8 Calcium Pending 9.5 Phosphorus Pending 2.7 Magnesium Pending 2.2 Total Bilirubin Pending 0.2 Direct Bilirubin Pending < 0.2 GGT Pending 22 AST Pending 15 ALT Pending 27 Alkaline Phosphatase Pending 62 Lactate Dehydrogenase Pending 144 Total Protein Pending 6.1 Albumin Pending 3.8 Globulin Pending 2.3 Albumin/Globulin Ratio Pending 1.7 Triglycerides Pending 95 09/09/19 06:15 WBC 19.2 H RBC 4.44 L Hgb 13.8 Hct 42.0 MCV 94.6 MCH 31.1 MCHC 32.9 RDW 13.2 Plt Count 229 MPV 10.7 H Total Counted 100 Seg Neutrophils % 89 H Band Neutrophils % Lymphocytes % 3 L Monocytes % (Manual) 8 Platelet Estimate Normal RBC Morphology Normal Sodium Potassium Chloride Carbon Dioxide Anion Gap BUN Creatinine GFR Calculation Glucose Uric Acid Calcium Phosphorus Magnesium Total Bilirubin Direct Bilirubin GGT AST ALT Alkaline Phosphatase Lactate Dehydrogenase Total Protein Albumin Globulin Albumin/Globulin Ratio Triglycerides Medical - DS: A/P - Patient/Caregiver Discharge Instructions Activity: increase activity as tolerated Diet: Consistent Carbohydrate Additional Instructions: Follow-up primary care physician 5 to 7 days Follow pulmonology in 2 to 4 weeks Continue prednisone 44 4 days followed by 10 mg Augmentin for additional 5 days Refrain from smoking Prescriptions: Amoxicillin/Potassium Clav [Augmentin] 875 mg PO BIDCC #10 tab Transmission Status: Pending to [facility] predniSONE [Prednisone] 40 mg PO QAMCC #8 tab Transmission Status: Pending to [facility] - Problem Maintenance (1) Acute exacerbation of chronic obstructive airways disease Status: Chronic - Follow up Plan Follow up with: Zulay Jones ARNP [Primary Care Provider] - Disposition: Home, Self-Care Prognosis: Fair Rehab Potential: Fair I certify that the patient requires SNF services: No Overall status at discharge: patient is progressing back to baseline
[2019-09-10 08:13] LABS: Hematocrit 41.9 % (40.1-51.0); Hemoglobin 13.6 g/dL (13.7-17.5); Mean Cell Volume 96.3 fL (80.0-100.0); Mean Corpuscular HGB Conc 32.5 g/dL (31.0-36.0); Mean Platelet Volume 10.7 fL (7.4-10.4); Platelet Count 201 K/mcL (140-440); RBC 4.35 M/mcL (4.63-6.08); Red Cell Distribution Width 13.2 % (11.5-14.5); WBC 16.2 K/mcL (4.50-11.00)
[2019-09-10 08:42] LABS: ALT/SGPT 32 U/l (0-40); AST/SGOT 18 U/l (0-37); Albumin 3.7 gm/dL (3.2-5.2); Albumin/Globulin Ratio 1.7 (1.0-2.3); Alkaline Phosphatase 63 U/L (39-117); Bilirubin,Direct < 0.2 mg/dL (0.0-0.3); Bilirubin,Total 0.2 mg/dL (0.0-1.0); Blood Urea Nitrogen 20 mg/dl (8-23); Calcium 9.3 mg/dl (8.6-10.4); Carbon Dioxide 28 mmol/L (22-30); Chloride 100 mmol/L (96-108); Globulin 2.2 gm/dL (2.2-3.7); Glomerular Filtration Rate 90; Glucose 128 mg/dL (70-105); Lactate Dehydrogenase 151 U/L (94-250); Phosphorous 2.8 mg/dL (2.7-4.5); Triglycerides 204 mg/dl (<150); Uric Acid 4.3 mg/dL (2.5-8.0)
[2019-09-10 09:02] LABS: Band Neutrophils % 1 % (0-10); Basophils % (Manual) 1 % (0-2); Lymphocytes % 8 % (15-49); Monocytes % (Manual) 7 % (1-12); Platelet Estimate NORMAL (NORMAL); RBC Morphology NORMAL (NORMAL); Segmented Neutrophils % 83 % (38-78)
== END 2019-09-10 11:30 | disposition home or self-care (01) | DRG 192 ==
LOC: ED 20:24 → ICU 09-08 00:49 → MEDSUR 09-08 16:40
PROVIDERS: ADMIT Internal Medicine; ATTEND Internal Medicine

== ENCOUNTER 2023-09-25 10:29 | Inpatient (IN) ==
[2023-09-25] MEDS ORDERED: IOPAMIDOL 100 ML BOTTLE IV ONE (10:30)
[2023-09-25] MEDS: IPRATROPIUM/ALBUTEROL 3 ML AMPUL.NEB NEB ONE ×3 (10:57→16:22)
[2023-09-25] MEDS: FUROSEMIDE 40 MG/4 ML VIAL IV ONE (10:57)
[2023-09-25] MEDS: DILTIAZEM 25 MG/5 ML VIAL IV ONE (11:19)
[2023-09-25 11:26] LABS: Basophils # (Auto) 0.05 K/mcL (0.00-0.30); Basophils % (Auto) 0.3 % (0.0-2.0); Eosinophils # (Auto) 0.13 K/mcL (0.00-0.70); Eosinophils % (Auto) 0.8 % (0.0-7.0); Hematocrit 50.1 % (40.1-51.0); Hemoglobin 15.8 g/dL (13.7-17.5); Lymphocytes # (Auto) 0.81 K/mcL (1.50-4.80); Lymphocytes % (Auto) 5.2 % (15.5-49.0); Mean Cell Volume 93.3 fL (80.0-100.0); Mean Corpuscular HGB Conc 31.5 g/dL (31.0-36.0); Mean Platelet Volume 10.1 fL (8.8-12.5); Monocytes # (Auto) 0.72 K/mcL (0.10-0.90); Monocytes % (Auto) 4.6 % (1.0-12.0); Neutrophils % (Auto) 88.1 % (38.0-78.0); Platelet Count 254 K/mcL (140-440); RBC 5.37 M/mcL (4.63-6.08); Red Cell Distribution Width 15.6 % (11.5-14.5); WBC 15.6 K/mcL (4.5-11.0)
[2023-09-25 12:06] LABS: Appearance,Urine Turbid (Clear); Bacteria,Urine Rare /hpf (0); Bilirubin,Urine Negative (Negative); Color,Urine Yellow; Culture Indicated,Urine Yes; Glucose,Urine (UA) Negative (Negative); Ketones,Urine Negative (Negative); Leukocyte Esterase,Urine Large /uL (Negative); Nitrate,Urine Negative (Negative); Protein,Urine 100 mg/dL (Negative); Urine Blood Large ery/mcL (Negative); Urine Budding Yeast Few /hpf; Urine RBC 4 /hpf (0-3); Urine Squamous Epithelial Cell 0 /hpf (0-4); Urine WBC 100 /hpf (0-4); Urobilinogen,Urine Normal
[2023-09-25] MEDS: CEFEPIME 2 GM VIAL IV ONE (12:23)
[2023-09-25] MEDS: VANCOMYCIN 1,500 MG in 0.9 % SODIUM CHLORIDE 500 ML IV ONE (13:08)
[2023-09-25 13:09] LABS: POC Calcium, Ionized 1.23 (1.16-1.32); POC Creatinine 1.7 (0.6-1.2); POC Potassium 4.5 (3.3-5.1)
[2023-09-25 13:13] LABS: Prothrombin Time 14.1 sec (11.9-14.5)
[2023-09-25] MEDS: 0.9 % SODIUM CHLORIDE 500 ML IV ONE ×2 (14:51→14:57)
[2023-09-25] MEDS: 0.9 % SODIUM CHLORIDE 1,000 ML IV ONE (16:17)
[2023-09-25] MEDS ORDERED: LACTULOSE 20 GM/30 ML ORAL.SOL PO PRN (19:17)
[2023-09-25] MEDS ORDERED: ACETAMINOPHEN 325 MG TABLET PO PRN (19:17)
[2023-09-25] MEDS ORDERED: DEXTROSE 50% 50 ML VIAL IV PRN (19:17)
[2023-09-25] MEDS ORDERED: SENNOSIDES 1 TABLET PO PRN (19:17)
[2023-09-25] MEDS ORDERED: METOPROLOL TARTRATE 5 MG/5 ML VIAL IV PRN (19:17)
[2023-09-25] MEDS ORDERED: DEXTROSE 31 GM ORAL.SUSP PO PRN (19:17)
[2023-09-25] MEDS: 0.9 % SODIUM CHLORIDE 1,000 ML IV SCH (19:40)
[2023-09-25] MEDS: IPRATROPIUM/ALBUTEROL 3 ML AMPUL.NEB NEB SCH (19:50)
[2023-09-25] MEDS: FLUCONAZOLE 400 MG/200 ML BAG IV SCH ×2 (19:50→19:55)
[2023-09-25] MEDS ORDERED: LORazepam 1 MG TABLET PO PRN (20:19)
[2023-09-25] MEDS: 0.9 % SODIUM CHLORIDE 10 ML SYRINGE IV SCH (20:51)
[2023-09-25] MEDS: METOPROLOL TARTRATE 25 MG TABLET PO SCH (20:57)
[2023-09-25] MEDS: DOCUSATE SODIUM 100 MG CAPSULE PO SCH (20:57)
[2023-09-25] MEDS: INSULIN LISPRO 1 UNIT/0.01 ML UNIT SQ SCH (20:57)
[2023-09-25] MEDS: APIXABAN 5 MG TABLET PO SCH (20:57)
[2023-09-25] MEDS: methylPREDNISolone SOD SUCC 125 MG/2 ML VIAL IV SCH (21:02)
[2023-09-25] MEDS: PIPERACILLIN SODIUM/TAZOBACTAM 3.375 GM in DEXTROSE 5% IN WATER 100 ML IV SCH (22:11)
[2023-09-25] MEDS: IPRATROPIUM 2.5 ML AMPUL.NEB NEB SCH (23:51)
[2023-09-25] MEDS: PIPERACILLIN SODIUM/TAZOBACTAM 3.375 GM in DEXTROSE 5% IN WATER 50 ML IV SCH (23:51)
[2023-09-26 05:54] LABS: Basophils # (Auto) 0.01 K/mcL (0.00-0.30); Basophils % (Auto) 0.1 % (0.0-2.0); Eosinophils # (Auto) 0 K/mcL (0.00-0.70); Eosinophils % (Auto) 0 % (0.0-7.0); Hematocrit 40.4 % (40.1-51.0); Hemoglobin 12.4 g/dL (13.7-17.5); Lymphocytes # (Auto) 0.32 K/mcL (1.50-4.80); Lymphocytes % (Auto) 1.8 % (15.5-49.0); Mean Cell Volume 97.1 fL (80.0-100.0); Mean Corpuscular HGB Conc 30.7 g/dL (31.0-36.0); Mean Platelet Volume 10.2 fL (8.8-12.5); Monocytes # (Auto) 0.46 K/mcL (0.10-0.90); Monocytes % (Auto) 2.6 % (1.0-12.0); Neutrophils % (Auto) 94.7 % (38.0-78.0); Platelet Count 175 K/mcL (140-440); RBC 4.16 M/mcL (4.63-6.08); WBC 17.9 K/mcL (4.5-11.0)
[2023-09-26 06:40] LABS: Estimated Average Glucose(eAG) 171 mg/dL; Hemoglobin A1C 7.6 % Hgb (4.0-6.0)
[2023-09-26 06:42] LABS: ALT/SGPT 28 U/L (<40); AST/SGOT 30 U/L (<40); Albumin/Globulin Ratio 1.2 (1.0-2.3); Alkaline Phosphatase 71 U/L (39-117); Bilirubin,Total 0.3 mg/dL (0.1-1.0); Blood Urea Nitrogen 21 mg/dL (8-23); Carbon Dioxide 20 mmol/L (22-30); Chloride 105 mmol/L (96-108); Globulin 2.6 gm/dL (2.2-3.7); Glomerular Filtration Rate 59; Glucose 291 mg/dL (70-105)
[2023-09-26] MEDS: PANTOPRAZOLE 40 MG TABLET PO SCH (08:09)
[2023-09-26] MEDS: ALBUTEROL SULFATE 2.5 MG/3 ML NEBULIZER NEB PRN (08:25)
[2023-09-26] MEDS: FUROSEMIDE 20 MG/2 ML VIAL IV SCH (08:46)
[2023-09-26] MEDS: methylPREDNISolone SOD SUCC 125 MG/2 ML VIAL IV SCH (14:33)
[2023-09-26] MEDS: INSULIN LISPRO 1 UNIT/0.01 ML UNIT SQ SCH (17:24)
[2023-09-26] MEDS: MELATONIN 3 MG TABLET PO SCH (22:42)
[2023-09-26] MEDS: diphenhydrAMINE 25 MG CAPSULE PO PRN (22:42)
[2023-09-27] MEDS: MELATONIN 3 MG TABLET PO ONE (02:32)
[2023-09-27] MEDS: diphenhydrAMINE 25 MG CAPSULE ONE (02:32)
[2023-09-27 06:29] LABS: ALT/SGPT 38 U/L (<40); AST/SGOT 34 U/L (<40); Albumin 3.3 gm/dL (3.2-5.2); Albumin/Globulin Ratio 1.2 (1.0-2.3); Alkaline Phosphatase 66 U/L (39-117); Bilirubin,Direct < 0.2 mg/dL (0-0.3); Bilirubin,Total 0.3 mg/dL (0.1-1.0); Blood Urea Nitrogen 24 mg/dL (8-23); Calcium 8.4 mg/dL (8.6-10.4); Carbon Dioxide 23 mmol/L (22-30); Chloride 106 mmol/L (96-108); Globulin 2.7 gm/dL (2.2-3.7); Glomerular Filtration Rate 83; Glucose 291 mg/dL (70-105); Lactate Dehydrogenase 206 U/L (135-225); Phosphorous 2.3 mg/dL (2.5-4.5); Triglycerides 118 mg/dL (<150); Uric Acid 4.4 mg/dL (2.5-8.0)
[2023-09-27 06:32] LABS: Hematocrit 37.2 % (40.1-51.0); Hemoglobin 12.3 g/dL (13.7-17.5); Mean Cell Volume 91.2 fL (80.0-100.0); Mean Corpuscular HGB Conc 33.1 g/dL (31.0-36.0); Mean Platelet Volume 10.5 fL (8.8-12.5); Platelet Count 205 K/mcL (140-440); RBC 4.08 M/mcL (4.63-6.08); WBC 16.8 K/mcL (4.5-11.0)
[2023-09-27] MEDS: FUROSEMIDE 40 MG/4 ML VIAL IV ONE (07:51)
[2023-09-27 08:08] LABS: Anisocytosis 1+ (None Seen); Band Neutrophils % 2 % (0-10); Lymphocytes % 3 % (15-49); Platelet Estimate NORMAL (Normal); RBC Morphology ABNORMAL (Normal); Segmented Neutrophils % 95 % (38-78)
[2023-09-27] MEDS: BUDESONIDE 0.5 MG/2 ML AMPUL.NEB NEB SCH (08:15)
[2023-09-27] MEDS: INSULIN GLARGINE, HUMAN 1 UNIT/0.01 ML SQ SCH (08:30)
[2023-09-27] MEDS: CASPOFUNGIN ACETATE 70 MG in 0.9 % SODIUM CHLORIDE 250 ML IV ONE (10:41)
[2023-09-27] MEDS: IPRATROPIUM/ALBUTEROL 3 ML AMPUL.NEB NEB PRN ×2 (11:35→19:00)
[2023-09-27] MEDS: methylPREDNISolone SOD SUCC 40 MG/ML VIAL IV SCH (13:43)
[2023-09-27] MEDS: GABAPENTIN 100 MG CAPSULE PO SCH (15:06)
[2023-09-27] MEDS: DONEPEZIL 10 MG TABLET PO SCH (21:11)
[2023-09-27] MEDS: METOPROLOL TARTRATE 50 MG TABLET PO SCH (21:11)
[2023-09-27] MEDS: FAMOTIDINE 20 MG TABLET PO SCH (21:12)
[2023-09-27] MEDS: ATORVASTATIN 40 MG TABLET PO SCH (21:12)
[2023-09-28 05:40] LABS: Basophils # (Auto) 0 K/mcL (0.00-0.30); Basophils % (Auto) 0 % (0.0-2.0); Eosinophils # (Auto) 0 K/mcL (0.00-0.70); Eosinophils % (Auto) 0 % (0.0-7.0); Hematocrit 38.7 % (40.1-51.0); Hemoglobin 12.6 g/dL (13.7-17.5); Lymphocytes # (Auto) 0.46 K/mcL (1.50-4.80); Lymphocytes % (Auto) 3.4 % (15.5-49.0); Mean Cell Volume 91.5 fL (80.0-100.0); Mean Corpuscular HGB Conc 32.6 g/dL (31.0-36.0); Mean Platelet Volume 10.5 fL (8.8-12.5); Monocytes # (Auto) 0.69 K/mcL (0.10-0.90); Neutrophils % (Auto) 90.9 % (38.0-78.0); Platelet Count 208 K/mcL (140-440); RBC 4.23 M/mcL (4.63-6.08); Red Cell Distribution Width 16.2 % (11.5-14.5); WBC 13.7 K/mcL (4.5-11.0)
[2023-09-28 06:47] LABS: ALT/SGPT 44 U/L (<40); AST/SGOT 25 U/L (<40); Albumin 3.2 gm/dL (3.2-5.2); Albumin/Globulin Ratio 1.1 (1.0-2.3); Alkaline Phosphatase 64 U/L (39-117); Bilirubin,Direct < 0.2 mg/dL (0-0.3); Bilirubin,Total 0.3 mg/dL (0.1-1.0); Blood Urea Nitrogen 23 mg/dL (8-23); Calcium 8.4 mg/dL (8.6-10.4); Carbon Dioxide 28 mmol/L (22-30); Chloride 103 mmol/L (96-108); Globulin 2.8 gm/dL (2.2-3.7); Glomerular Filtration Rate 83; Glucose 237 mg/dL (70-105); Lactate Dehydrogenase 180 U/L (135-225); Phosphorous 2.7 mg/dL (2.5-4.5); Triglycerides 130 mg/dL (<150); Uric Acid 4.2 mg/dL (2.5-8.0)
[2023-09-28] MEDS: POTASSIUM CHLORIDE 20 MEQ TABLET PO ONE (07:50)
[2023-09-28] MEDS: ONDANSETRON 4 MG/2 ML VIAL IV PRN (07:50)
[2023-09-28] MEDS: CASPOFUNGIN ACETATE 50 MG in 0.9 % SODIUM CHLORIDE 250 ML IV SCH (08:52)
[2023-09-28] MEDS: POTASSIUM CHLORIDE 40 MEQ in DEXTROSE 5% IN WATER 500 ML IV ONE (08:52)
[2023-09-28] MEDS: INSULIN GLARGINE, HUMAN 1 UNIT/0.01 ML SQ SCH (09:08)
[2023-09-28] MEDS: FINASTERIDE 5 MG TABLET PO SCH (09:09)
[2023-09-28] MEDS: TAMSULOSIN 0.4 MG CAPSULE PO SCH (09:09)
[2023-09-28] MEDS: FOLIC ACID 1 MG TABLET PO SCH (09:09)
[2023-09-28] MEDS: THIAMINE 100 MG TABLET PO SCH (09:09)
[2023-09-28] MEDS: SERTRALINE 50 MG TABLET PO SCH (09:09)
[2023-09-28] MEDS: FUROSEMIDE 20 MG TABLET PO SCH (09:50)
[2023-09-28] MEDS: FLUZONE HD QS2023-24/PF 240 MCG/0.7 ML SYRINGE IM ONE (10:24)
[2023-09-28] MEDS: predniSONE 20 MG TABLET PO SCH (17:18)
[2023-09-29 06:17] LABS: Basophils # (Auto) 0 K/mcL (0.00-0.30); Basophils % (Auto) 0 % (0.0-2.0); Eosinophils # (Auto) 0 K/mcL (0.00-0.70); Eosinophils % (Auto) 0 % (0.0-7.0); Hematocrit 39.2 % (40.1-51.0); Hemoglobin 12.4 g/dL (13.7-17.5); Lymphocytes # (Auto) 0.64 K/mcL (1.50-4.80); Lymphocytes % (Auto) 5.3 % (15.5-49.0); Mean Cell Volume 92.5 fL (80.0-100.0); Mean Corpuscular HGB Conc 31.6 g/dL (31.0-36.0); Mean Platelet Volume 10.2 fL (8.8-12.5); Monocytes # (Auto) 1.06 K/mcL (0.10-0.90); Monocytes % (Auto) 8.8 % (1.0-12.0); Platelet Count 205 K/mcL (140-440); RBC 4.24 M/mcL (4.63-6.08); Red Cell Distribution Width 16.1 % (11.5-14.5); WBC 12.1 K/mcL (4.5-11.0)
[2023-09-29 06:29] LABS: Blood Urea Nitrogen 23 mg/dL (8-23); Carbon Dioxide 29 mmol/L (22-30); Chloride 103 mmol/L (96-108); Glomerular Filtration Rate 87; Glucose 207 mg/dL (70-105)
[2023-09-29] MEDS: predniSONE 20 MG TABLET PO SCH (08:10)
[2023-09-29] MEDS: INSULIN GLARGINE, HUMAN 1 UNIT/0.01 ML SQ SCH (08:10)
[2023-09-29] MEDS: guaiFENesin/CODEINE 10 ML UDC PO ONE (09:26)
[2023-09-29] MEDS: guaiFENesin/CODEINE 10 ML UDC PO PRN (12:37)
[2023-09-29] MEDS: IPRATROPIUM/ALBUTEROL 3 ML AMPUL.NEB NEB SCH (13:00)
[2023-09-30 06:23] LABS: Hemoglobin 12.6 g/dL (13.7-17.5); Mean Cell Volume 93.8 fL (80.0-100.0); Mean Corpuscular HGB Conc 32.3 g/dL (31.0-36.0); Mean Platelet Volume 10.3 fL (8.8-12.5); Platelet Count 187 K/mcL (140-440); RBC 4.16 M/mcL (4.63-6.08); WBC 9.9 K/mcL (4.5-11.0)
[2023-09-30 06:32] LABS: ALT/SGPT 51 U/L (<40); AST/SGOT 21 U/L (<40); Albumin/Globulin Ratio 1.3 (1.0-2.3); Alkaline Phosphatase 60 U/L (39-117); Bilirubin,Direct < 0.2 mg/dL (0-0.3); Bilirubin,Total 0.4 mg/dL (0.1-1.0); Blood Urea Nitrogen 17 mg/dL (8-23); Calcium 7.8 mg/dL (8.6-10.4); Carbon Dioxide 30 mmol/L (22-30); Chloride 102 mmol/L (96-108); Globulin 2.4 gm/dL (2.2-3.7); Glomerular Filtration Rate 92; Glucose 76 mg/dL (70-105); Lactate Dehydrogenase 196 U/L (135-225); Phosphorous 2.8 mg/dL (2.5-4.5); Triglycerides 140 mg/dL (<150); Uric Acid 2.8 mg/dL (2.5-8.0)
[2023-09-30] MEDS: ALBUMIN HUMAN 12.5 GM/50 ML VIAL IV ONE (08:10)
[2023-09-30 09:22] LABS: Anisocytosis 1+ (None Seen); Lymphocytes % 14 % (15-49); Monocytes % (Manual) 12 % (1-12); Platelet Estimate NORMAL (Normal); RBC Morphology ABNORMAL (Normal); Segmented Neutrophils % 74 % (38-78)
[2023-09-30] MEDS: guaiFENesin 600 MG TAB.SR.12H PO SCH (09:22)
[2023-09-30] MEDS: cefTRIAXone 1 GM VIAL IV SCH (09:23)
[2023-09-30] MEDS: INSULIN GLARGINE, HUMAN 1 UNIT/0.01 ML SQ SCH (09:23)
[2023-09-30] MEDS: FUROSEMIDE 40 MG/4 ML VIAL IV ONE (09:23)
[2023-09-30] MEDS: IPRATROPIUM/ALBUTEROL 3 ML AMPUL.NEB NEB SCH (11:26)
[2023-09-30] MEDS: ACETYLCYSTEINE 800 MG/4 ML VIAL NEB SCH (11:26)
[2023-10-01] MEDS ORDERED: BENZOCAINE/MENTHOL 1 LOZENGE PO PRN (08:14)
[2023-10-01] MEDS: LORATADINE 10 MG TABLET PO SCH (09:28)
[2023-10-01] MEDS ORDERED: 0.9 % SODIUM CHLORIDE 10 ML SYRINGE IV PRN (09:48)
[2023-10-01] MEDS ORDERED: LIDOCAINE 1% 10 ML VIAL SQ ONE (11:49)
[2023-10-01] MEDS: 0.9 % SODIUM CHLORIDE 10 ML SYRINGE IV SCH (21:00)
== END 2023-10-02 12:15 | DRG 190 ==
LOC: ED 10:29 → ICU 19:21
PROVIDERS: ADMIT Internal Medicine; ATTEND Internal Medicine Infectious Disease

== ENCOUNTER 2024-09-07 12:45 | Inpatient (IN) ==
[2024-09-07] MEDS: IPRATROPIUM/ALBUTEROL 3 ML AMPUL.NEB NEB ONE ×2 (13:05→22:07)
[2024-09-07 13:37] LABS: Basophils # (Auto) 0.12 K/mcL (0.00-0.30); Basophils % (Auto) 0.8 % (0.0-2.0); Eosinophils # (Auto) 1.04 K/mcL (0.00-0.70); Eosinophils % (Auto) 7.3 % (0.0-7.0); Hematocrit 49.4 % (40.1-51.0); Hemoglobin 15.5 g/dL (13.7-17.5); Lymphocytes # (Auto) 2.43 K/mcL (1.50-4.80); Lymphocytes % (Auto) 17.1 % (15.5-49.0); Mean Cell Volume 87.7 fL (80.0-100.0); Mean Corpuscular HGB Conc 31.4 g/dL (31.0-36.0); Mean Platelet Volume 10.7 fL (8.8-12.5); Monocytes # (Auto) 1.65 K/mcL (0.10-0.90); Monocytes % (Auto) 11.6 % (1.0-12.0); Platelet Count 265 K/mcL (140-440); RBC 5.63 M/mcL (4.63-6.08); Red Cell Distribution Width 16.1 % (11.5-14.5); WBC 14.2 K/mcL (4.5-11.0)
[2024-09-07 13:58] LABS: ALT/SGPT 17 U/L (<40); AST/SGOT 19 U/L (<40); Albumin 3.7 gm/dL (3.2-5.2); Albumin/Globulin Ratio 1.1 (1.0-2.3); Alkaline Phosphatase 133 U/L (39-117); Bilirubin,Total 0.4 mg/dL (0.1-1.0); Blood Urea Nitrogen 14 mg/dL (8-23); Calcium 9.3 mg/dL (8.6-10.4); Carbon Dioxide 26 mmol/L (22-30); Chloride 100 mmol/L (96-108); Globulin 3.3 gm/dL (2.2-3.7); Glomerular Filtration Rate 83; Glucose 81 mg/dL (70-105); Sodium 140 mmol/L (133-145)
[2024-09-07] MEDS: FUROSEMIDE 20 MG/2 ML VIAL IV ONE (14:25)
[2024-09-07] MEDS: AZITHROMYCIN 500 MG in 0.9 % SODIUM CHLORIDE 250 ML IV ONE (14:25)
[2024-09-07] MEDS: cefTRIAXone 1 GM VIAL IV ONE (14:25)
[2024-09-07] MEDS ORDERED: DEXTROSE 50% 50 ML VIAL IV PRN (17:41)
[2024-09-07] MEDS ORDERED: LACTULOSE 20 GM/30 ML ORAL.SOL PO PRN (17:41)
[2024-09-07] MEDS ORDERED: ACETAMINOPHEN 325 MG TABLET PO PRN (17:41)
[2024-09-07] MEDS ORDERED: oxyCODONE IR 5 MG TABLET PO PRN (17:41)
[2024-09-07] MEDS ORDERED: DEXTROSE 31 GM ORAL.SUSP PO PRN (17:41)
[2024-09-07] MEDS ORDERED: ONDANSETRON 4 MG/2 ML VIAL IV PRN (17:41)
[2024-09-07] MEDS ORDERED: SENNOSIDES 1 TABLET PO PRN (17:41)
[2024-09-07] MEDS: IPRATROPIUM/ALBUTEROL 3 ML AMPUL.NEB NEB SCH (17:50)
[2024-09-07] MEDS: INSULIN LISPRO 1 UNIT/0.01 ML UNIT SQ SCH (17:51)
[2024-09-07] MEDS: methylPREDNISolone SOD SUCC 125 MG/2 ML VIAL IV SCH (20:41)
[2024-09-07] MEDS: APIXABAN 5 MG TABLET PO SCH (20:41)
[2024-09-07] MEDS: 0.9 % SODIUM CHLORIDE 10 ML SYRINGE IV SCH (20:42)
[2024-09-07] MEDS: DOCUSATE SODIUM 100 MG CAPSULE PO SCH (20:42)
[2024-09-07] MEDS: guaiFENesin 100 MG/5 ML SYRUP PO PRN (22:06)
[2024-09-08] MEDS: ALBUTEROL SULFATE 2.5 MG/3 ML NEBULIZER NEB PRN (05:40)
[2024-09-08 06:04] LABS: Basophils # (Auto) 0.01 K/mcL (0.00-0.30); Basophils % (Auto) 0.1 % (0.0-2.0); Eosinophils # (Auto) 0 K/mcL (0.00-0.70); Eosinophils % (Auto) 0 % (0.0-7.0); Hematocrit 46.8 % (40.1-51.0); Hemoglobin 14.6 g/dL (13.7-17.5); Lymphocytes # (Auto) 0.75 K/mcL (1.50-4.80); Lymphocytes % (Auto) 8.5 % (15.5-49.0); Mean Cell Volume 86.7 fL (80.0-100.0); Mean Corpuscular HGB Conc 31.2 g/dL (31.0-36.0); Mean Platelet Volume 10.3 fL (8.8-12.5); Monocytes # (Auto) 0.22 K/mcL (0.10-0.90); Monocytes % (Auto) 2.5 % (1.0-12.0); Neutrophils % (Auto) 88.8 % (38.0-78.0); Platelet Count 239 K/mcL (140-440); Red Cell Distribution Width 15.8 % (11.5-14.5); WBC 8.8 K/mcL (4.5-11.0)
[2024-09-08 06:13] LABS: ABG Methemoglobin 0.2 % (0.4-1.5); Total Hemoglobin 15.6 gm/Dl (13.5-16.5); VBG Base Excess 0 (-2-3); VBG HCO3 25.5 mmol/L (24.0-28.0); VBG Oxygen Saturation 65.1 % (40.0-70.0); VBG PCO2 46.1 mmHg (41.0-51.0); VBG PH 7.36 U (7.32-7.42); VBG Total CO2 26.9 mmol/L (25.0-29.0)
[2024-09-08] MEDS ORDERED: SIMETHICONE 80 MG TAB.CHEW CHEWED PRN (06:52)
[2024-09-08] MEDS ORDERED: guaiFENesin 100 MG/5 ML SYRUP PO PRN (07:00)
[2024-09-08] MEDS: TAMSULOSIN 0.4 MG CAPSULE PO SCH (08:59)
[2024-09-08] MEDS: GABAPENTIN 100 MG CAPSULE PO SCH (08:59)
[2024-09-08] MEDS: FUROSEMIDE 20 MG TABLET PO SCH (08:59)
[2024-09-08] MEDS: FINASTERIDE 5 MG TABLET PO SCH (08:59)
[2024-09-08] MEDS: METOPROLOL TARTRATE 50 MG TABLET PO SCH (08:59)
[2024-09-08] MEDS: VITAMIN B COMPLEX 1 CAPSULE PO SCH (08:59)
[2024-09-08] MEDS: APIXABAN 5 MG TABLET PO SCH (08:59)
[2024-09-08] MEDS: FAMOTIDINE 20 MG TABLET PO SCH (08:59)
[2024-09-08] MEDS: SERTRALINE 50 MG TABLET PO SCH (08:59)
[2024-09-08] MEDS: INSULIN GLARGINE, HUMAN 1 UNIT/0.01 ML SQ SCH (09:00)
[2024-09-08] MEDS: cefTRIAXone 1 GM VIAL IV SCH (09:05)
[2024-09-08] MEDS: LORATADINE 10 MG TABLET PO SCH (09:05)
[2024-09-08] MEDS: DONEPEZIL 10 MG TABLET PO SCH (20:05)
[2024-09-08] MEDS: ATORVASTATIN 20 MG TABLET PO SCH (20:05)
[2024-09-08] MEDS: METOPROLOL TARTRATE 25 MG TABLET PO SCH (20:05)
[2024-09-08] MEDS: MELATONIN 3 MG TABLET PO SCH (20:05)
[2024-09-08] MEDS: hydrOXYzine 25 MG TABLET PO PRN (20:57)
[2024-09-09 07:16] LABS: Basophils # (Auto) 0.01 K/mcL (0.00-0.30); Basophils % (Auto) 0.1 % (0.0-2.0); Eosinophils # (Auto) 0.02 K/mcL (0.00-0.70); Eosinophils % (Auto) 0.1 % (0.0-7.0); Hematocrit 44.8 % (40.1-51.0); Lymphocytes # (Auto) 0.77 K/mcL (1.50-4.80); Lymphocytes % (Auto) 4.9 % (15.5-49.0); Mean Cell Volume 87.7 fL (80.0-100.0); Mean Corpuscular HGB Conc 31.3 g/dL (31.0-36.0); Mean Platelet Volume 11.6 fL (8.8-12.5); Monocytes # (Auto) 0.91 K/mcL (0.10-0.90); Monocytes % (Auto) 5.8 % (1.0-12.0); Neutrophils % (Auto) 88.9 % (38.0-78.0); Platelet Count 249 K/mcL (140-440); RBC 5.11 M/mcL (4.63-6.08); WBC 15.6 K/mcL (4.5-11.0)
[2024-09-09] MEDS: LORazepam 2 MG/ML VIAL IV PRN (08:37)
[2024-09-09] MEDS: IPRATROPIUM/ALBUTEROL 3 ML AMPUL.NEB NEB SCH (19:25)
[2024-09-09] MEDS: morphine 2 MG/ML VIAL IV PRN (22:33)
[2024-09-10 06:36] LABS: Basophils # (Auto) 0 K/mcL (0.00-0.30); Basophils % (Auto) 0 % (0.0-2.0); Eosinophils # (Auto) 0.01 K/mcL (0.00-0.70); Eosinophils % (Auto) 0.1 % (0.0-7.0); Hematocrit 44.4 % (40.1-51.0); Lymphocytes # (Auto) 0.78 K/mcL (1.50-4.80); Lymphocytes % (Auto) 5.1 % (15.5-49.0); Mean Cell Volume 88.3 fL (80.0-100.0); Mean Corpuscular HGB Conc 31.5 g/dL (31.0-36.0); Mean Platelet Volume 11.3 fL (8.8-12.5); Monocytes # (Auto) 0.83 K/mcL (0.10-0.90); Monocytes % (Auto) 5.4 % (1.0-12.0); Neutrophils % (Auto) 89.1 % (38.0-78.0); Platelet Count 234 K/mcL (140-440); RBC 5.03 M/mcL (4.63-6.08); Red Cell Distribution Width 15.9 % (11.5-14.5); WBC 15.4 K/mcL (4.5-11.0)
[2024-09-10] MEDS: AZITHROMYCIN 500 MG in 0.9 % SODIUM CHLORIDE 250 ML IV SCH (11:15)
[2024-09-10] MEDS: CEFEPIME 2 GM VIAL IV SCH (11:16)
[2024-09-10] MEDS ORDERED: IOPAMIDOL 100 ML BOTTLE IV ONE (11:49)
[2024-09-10] MEDS: guaiFENesin 600 MG TAB.SR.12H PO PRN (12:51)
[2024-09-10] MEDS: BUDESONIDE 0.5 MG/2 ML AMPUL.NEB NEB SCH (19:19)
[2024-09-11 06:31] LABS: Basophils # (Auto) 0 K/mcL (0.00-0.30); Basophils % (Auto) 0 % (0.0-2.0); Eosinophils # (Auto) 0 K/mcL (0.00-0.70); Eosinophils % (Auto) 0 % (0.0-7.0); Hematocrit 44.8 % (40.1-51.0); Hemoglobin 13.7 g/dL (13.7-17.5); Lymphocytes # (Auto) 0.84 K/mcL (1.50-4.80); Lymphocytes % (Auto) 5.9 % (15.5-49.0); Mean Cell Volume 89.6 fL (80.0-100.0); Mean Corpuscular HGB Conc 30.6 g/dL (31.0-36.0); Mean Platelet Volume 10.6 fL (8.8-12.5); Monocytes # (Auto) 0.83 K/mcL (0.10-0.90); Monocytes % (Auto) 5.9 % (1.0-12.0); Neutrophils % (Auto) 87.6 % (38.0-78.0); Platelet Count 214 K/mcL (140-440); WBC 14.2 K/mcL (4.5-11.0)
[2024-09-11 07:16] LABS: ALT/SGPT 35 U/L (<40); AST/SGOT 18 U/L (<40); Albumin 3.6 gm/dL (3.2-5.2); Albumin/Globulin Ratio 1.5 (1.0-2.3); Alkaline Phosphatase 82 U/L (39-117); Bilirubin,Direct < 0.2 mg/dL (0-0.3); Bilirubin,Total < 0.2 mg/dL (0.1-1.0); Blood Urea Nitrogen 25 mg/dL (8-23); Calcium 8.8 mg/dL (8.6-10.4); Carbon Dioxide 31 mmol/L (22-30); Chloride 101 mmol/L (96-108); Globulin 2.4 gm/dL (2.2-3.7); Glomerular Filtration Rate 87; Glucose 158 mg/dL (70-105); Lactate Dehydrogenase 137 U/L (135-225); Phosphorous 3.1 mg/dL (2.5-4.5); Potassium 4.6 mmol/L (3.3-5.1); Sodium 141 mmol/L (133-145); Triglycerides 98 mg/dL (<150); Uric Acid 5.1 mg/dL (2.5-8.0)
[2024-09-11] MEDS: methylPREDNISolone SOD SUCC 40 MG/ML VIAL IV SCH (09:22)
[2024-09-12 03:38] VITALS: TEMP 97.2
[2024-09-12 06:52] LABS: Basophils # (Auto) 0 K/mcL (0.00-0.30); Basophils % (Auto) 0 % (0.0-2.0); Eosinophils # (Auto) 0 K/mcL (0.00-0.70); Eosinophils % (Auto) 0 % (0.0-7.0); Hematocrit 44.8 % (40.1-51.0); Hemoglobin 14.1 g/dL (13.7-17.5); Lymphocytes # (Auto) 0.91 K/mcL (1.50-4.80); Lymphocytes % (Auto) 5.8 % (15.5-49.0); Mean Cell Volume 88.2 fL (80.0-100.0); Mean Corpuscular HGB Conc 31.5 g/dL (31.0-36.0); Mean Platelet Volume 11.1 fL (8.8-12.5); Monocytes # (Auto) 1.01 K/mcL (0.10-0.90); Monocytes % (Auto) 6.4 % (1.0-12.0); Platelet Count 238 K/mcL (140-440); RBC 5.08 M/mcL (4.63-6.08); Red Cell Distribution Width 15.9 % (11.5-14.5); WBC 15.8 K/mcL (4.5-11.0)
[2024-09-12 07:29] LABS: ALT/SGPT 39 U/L (<40); AST/SGOT 18 U/L (<40); Albumin 3.4 gm/dL (3.2-5.2); Albumin/Globulin Ratio 1.4 (1.0-2.3); Alkaline Phosphatase 81 U/L (39-117); Bilirubin,Direct < 0.2 mg/dL (0-0.3); Bilirubin,Total 0.2 mg/dL (0.1-1.0); Blood Urea Nitrogen 21 mg/dL (8-23); Calcium 8.5 mg/dL (8.6-10.4); Carbon Dioxide 29 mmol/L (22-30); Chloride 101 mmol/L (96-108); Globulin 2.5 gm/dL (2.2-3.7); Glomerular Filtration Rate 91; Glucose 176 mg/dL (70-105); Lactate Dehydrogenase 172 U/L (135-225); Phosphorous 2.8 mg/dL (2.5-4.5); Potassium 4.7 mmol/L (3.3-5.1); Sodium 139 mmol/L (133-145); Triglycerides 100 mg/dL (<150); Uric Acid 4.3 mg/dL (2.5-8.0)
[2024-09-12 08:23] LABS: Lymphocytes % 7 % (15-49); Monocytes % (Manual) 3 % (1-12); Platelet Estimate NORMAL (Normal); RBC Morphology NORMAL (Normal); Segmented Neutrophils % 90 % (38-78)
[2024-09-12] MEDS ORDERED: EPINEPHrine 1 MG/10 ML (1:10,000) SYRINGE IV ONE (14:38)
[2024-09-12] MEDS ORDERED: ATROPINE SULFATE 1 MG/10 ML SYRINGE IV ONE (14:38)
[2024-09-12 15:48] VITALS: O2SAT 96
== END 2024-09-12 16:37 | disposition expired | DRG 190 ==
LOC: ED 12:45 → ICU 17:40
PROVIDERS: ADMIT Internal Medicine; ATTEND Internal Medicine